=== PATIENT | male | born 1950 | race Caucasian/White ===

== ENCOUNTER 2017-06-07 12:32 | Emergency (ER) | payer MEDICARE, BC ==
[~2017-06-07] VITALS: Ht 177.8 cm; Wt 117.1 kg
[~2017-06-07 12:32] MED LIST: CART240C4 PO; CLEO300C2 PO; COZA50TA PO; DIGO0.12 PO; FEXO60TA PO; OMEGCAP2 OR; PRAV40TA PO; PROS5TAB2 PO; PROZ40CA PO; TAB-TAB PO; VITA400C28 PO
[2017-06-07 12:38] VITALS: BP 180/99; PULSE 91; RESP 18; TEMP 97.8; O2SAT 97
[2017-06-07] MEDS ORDERED: COZA100T PO (13:56)
[2017-06-07] MEDS ORDERED: CART300C PO (13:56)
[2017-06-07] MEDS ORDERED: LOVA40TA PO (13:56)
[2017-06-07] MEDS ORDERED: FINA5TAB2 PO (13:56)
[2017-06-07] MEDS ORDERED: URIB118C (13:56)
[2017-06-07] MEDS ORDERED: CIPR-9 PO (13:56)
[2017-06-07] MEDS ORDERED: APIX5TAB PO (13:56)
[2017-06-07] MEDS ORDERED: LANO0.252 PO (13:56)
[2017-06-07] MEDS ORDERED: CYMB60CA PO (13:56)
--- NOTE | 2017-06-07 14:36 | PD ---
HPI Chief Complaint: Complaint Time Seen by Provider: 14:09 Travel History International Travel<30 days: No Contact w/Intl Traveler<30days: No Traveled to known affect area: No History of Present Illness HPI Patient is a 66 year old male who states that his Shah catheter bag has not been filling up for the past 2-1/2 hours. He states that he started leaking around the catheter site has been feeling uncomfortable suprapubic ever since. Patient states that he had a her lift procedure done 4 days ago and his urologist left a catheter in place. No nausea no vomiting no diarrhea no constipation no fevers. Symptoms for the past 2.5 hours, gradually worsening, associated signs and symptoms in context as above PFSH Past Medical History Hx Anticoagulant Therapy: Yes (ELIQUIS) Atrial Fibrillation: Yes (1 EPISODE NOW IN REGULAR RHYTHM) Anxiety: Yes Cancer: No Cardiovascular Problems: Yes (AFIB) High Cholesterol: Yes Coronary Artery Disease: Yes Diabetes: No Diminished Hearing: No Genitourinary: Yes (BPH) Hepatitis: No Hiatal Hernia: No Hypertension: Yes Thyroid Disease: No Tetanus Vaccination: < 5 Years Influenza Vaccination: Yes ?: Not Past Surgical History Abdominal Surgery: Yes (HERNIA) Cardiac Surgery: No Genitourinary Surgery: Yes (UROLIFT ??) Oral Surgery: Yes (TONSILS) Other Surgery: Yes (HERNIA REP) Social History Alcohol Use: Yes (OCCASIONALLY) Tobacco Use: No Substance Use: No Allergies-Medications (Allergen,Severity, Reaction): Coded Allergies: penicillin G (Unverified Allergy, Severe, SWELLING, 06/07/17) Reported Meds & Prescriptions Reported Meds & Active Scripts Active Reported Uribel (Akqrgcovkqu-Yhczq-Izwhswrqw Blue) 1 Cap Cipro (Ciprofloxacin HCl) 500 Mg Tab 500 Mg PO BID Lanoxin (Digoxin) 250 Mcg Tablet 125 Mcg PO DAILY Cozaar (Losartan Potassium) 100 Mg Tab 100 Mg PO DAILY Finasteride 5 Mg Tab 5 Mg PO DAILY Do not crush. Lovastatin 40 Mg Tab 40 Mg PO DAILY Cymbalta DR (Duloxetine HCl) 60 Mg Capdr 60 Mg PO DAILY Cartia Xt (Diltiazem ER 24 HR) 300 Mg Caper 300 Mg PO DAILY Eliquis (Apixaban) 5 Mg Tab 5 Mg PO BID Review of Systems Except as stated in HPI: all other systems reviewed are Neg Physical Exam Narrative GENERAL: Well-nourished, well-developed patient. Appears quite comfortable. SKIN: Focused skin assessment warm/dry. HEAD: Normocephalic. EYES: No scleral icterus. No injection or drainage. NECK: Supple, trachea midline. No JVD or lymphadenopathy. CARDIOVASCULAR: Regular rate and rhythm without murmurs, gallops, or rubs. RESPIRATORY: Breath sounds equal bilaterally. No accessory muscle use. GASTROINTESTINAL: Abdomen soft, non-tender, nondistended. No rebound no percussive tenderness. MUSCULOSKELETAL: No cyanosis, or edema. BACK: Nontender without obvious deformity. No CVA tenderness. Data Data Last Documented VS Vital Signs Date Time Temp Pulse Resp B/P (MAP) Pulse Ox O2 Delivery O2 Flow Rate FiO2 06/07/17 12:38 97.8 91 18 180/99 (126) 97 Orders Orders Ed Discharge Order (06/07/17 14:36) [facility] Medical Decision Making Medical Screen Exam Complete: Yes Emergency Medical Condition: Yes Differential Diagnosis Blocked Shah catheter, kinked Shah catheter, urinary retention, enlarged prostate. Narrative Course Patient room to the emergency department, his catheter was sterilely flushed by nursing, he had complete relief of his symptoms and his catheter again began draining. Patient states his symptoms completely relieved he would like to be discharged. There is no indication further workup this time, follow-up with his urologist as indicated/scheduled. Diagnosis Primary Impression: Obstruction of Shah catheter Additional Instructions: Follow-up with your urologist as scheduled Disposition: 01 DISCHARGE HOME Condition: Stable Alverto Read MD Jun 07, 2017 14:36
== END 2017-06-07 15:33 | disposition home or self-care (01) ==
LOC: PHED 12:32
DX: T83.091A Other mechanical complication of indwelling urethral catheter, initial encounter (principal); I48.91 Unspecified atrial fibrillation; F41.9 Anxiety disorder, unspecified; E78.00 Pure hypercholesterolemia, unspecified; I25.10 Atherosclerotic heart disease of native coronary artery without angina pectoris; N40.0 Benign prostatic hyperplasia without lower urinary tract symptoms; I10 Essential (primary) hypertension; Z79.899 Other long term (current) drug therapy; Z88.0 Allergy status to penicillin
CPT/HCPCS: 99281